=== PATIENT | male | born 1980 | race Caucasian/White ===

== ENCOUNTER 2020-08-28 02:53 | Outpatient (CLI) | payer BC, OTHER, SELFPAY ==
[2020-08-28 16:43] LABS: ALT 44 U/L (16-63); AST 21 U/L (15-37); Alkaline Phosphatase 74 U/L (46-116); Anion Gap 10.6 mmol/L (3-11); BUN 20 mg/dL (7-18); Bilirubin, Total 0.3 mg/dL (0.2-1.0); CO2 27.4 mmol/L (21.0-32.0); CREATININE 1.1 mg/dL (0.70-1.30); Calcium 9.8 mg/dL (8.5-10.1); Calculated LDL 145 mg/dL (<100); Chloride 102 mmol/L (98-107); Cholesterol 228 mg/dL (<200); Glucose 97 mg/dL (74-106); HDL Cholesterol 25 mg/dL (40-60); Sodium 140 mmol/L (136-145); Total Protein 7.3 g/dL (6.4-8.2); Triglyceride 291 mg/dL (<150)
[2020-08-28 21:59] LABS: PSA, Screening 1.1 ng/mL (0.0-2.5)
[2020-09-02 20:31] LABS: Testosterone, Total 299 ng/dL (240-950)
== END 2020-08-28 02:54 | disposition home or self-care (01) ==
LOC: LBO 02:54
PROVIDERS: PCP Student in an Organized Health Care Education/Training Program; Visit Provider Student in an Organized Health Care Education/Training Program
DX: I10 Essential (primary) hypertension (principal); E66.9 Obesity, unspecified; R68.82 Decreased libido; Z12.5 Encounter for screening for malignant neoplasm of prostate; Z13.220 Encounter for screening for lipoid disorders
CPT/HCPCS: 36415; 80053; 80061; 84153; 84403

== ENCOUNTER 2020-09-13 03:22 | Outpatient (CLI) | payer BC, OTHER, SELFPAY ==
[2020-09-14 18:05] LABS: COVID-19 RT-PCR UVMMC Result Negative (Negative)
== END 2020-09-13 03:23 | disposition home or self-care (01) ==
LOC: LBO 03:22
PROVIDERS: PCP Student in an Organized Health Care Education/Training Program; Visit Provider Student in an Organized Health Care Education/Training Program
DX: Z20.822 Contact with and (suspected) exposure to COVID-19 (principal)
CPT/HCPCS: U0003

== ENCOUNTER 2020-09-19 09:21 | Outpatient (CLI) | payer BC, OTHER, SELFPAY ==
[2020-09-20 13:09] LABS: COVID-19 RT-PCR UVMMC Result Negative (Negative)
== END 2020-09-19 09:22 | disposition home or self-care (01) ==
PROVIDERS: PCP Student in an Organized Health Care Education/Training Program; Visit Provider Student in an Organized Health Care Education/Training Program
DX: Z20.822 Contact with and (suspected) exposure to COVID-19 (principal)
CPT/HCPCS: U0003

== ENCOUNTER 2020-10-17 02:48 | Outpatient (CLI) | payer BC, OTHER, SELFPAY ==
[2020-10-18 13:29] LABS: COVID-19 RT-PCR UVMMC Result Negative (Negative)
== END 2020-10-17 02:49 | disposition home or self-care (01) ==
LOC: LBO 02:48
PROVIDERS: PCP Student in an Organized Health Care Education/Training Program; Visit Provider Student in an Organized Health Care Education/Training Program
DX: Z20.822 Contact with and (suspected) exposure to COVID-19 (principal)
CPT/HCPCS: U0003

== ENCOUNTER 2021-04-08 12:40 | Outpatient (CLI) | payer BC, OTHER, SELFPAY ==
--- NOTE | 2021-04-08 13:15 | DI.RAD_ITS ---
Exam(s) XR CHEST 2V PA LATERAL EXAM: XR CHEST 2V PA LATERAL CLINICAL HISTORY: cough, sob, wheeze. covid neg 04/02/21, NOT A PUI. R06.02, R06.2, R05.9 TECHNIQUE: 2D digital imaging was performed of the chest. Two images were obtained. PA and lateral views were obtained. COMPARISON: No exams were available for comparison FINDINGS: MEDIASTINUM: Normal. HEART: Normal. PULMONARY VASCULATURE: Normal. LUNGS: Clear. PLEURAL SPACE: No pleural effusion or pneumothorax. BONE:Within normal limits for the patient's age. OTHER FINDINGS:Normal. IMPRESSION: No acute pulmonary findings. DATA REPOSITORY: RADIATION DOSE DELIVERED:
== END 2021-04-08 13:00 ==
PROVIDERS: PCP Student in an Organized Health Care Education/Training Program; Visit Provider Nurse Practitioner
DX: R05.3 Chronic cough (principal); R06.02 Shortness of breath; R06.2 Wheezing
CPT/HCPCS: 71046

== ENCOUNTER 2021-06-26 03:23 | Outpatient (CLI) | payer BC, OTHER, SELFPAY ==
[2021-06-26 14:09] LABS: HCT 47.3 % (40.0-50.0); HGB 15.4 g/dL (13.5-17.5); MCH 28.4 pg (27.0-33.0); MCHC 32.6 % (32.0-36.0); MCV 87.1 fL (80-95); MPV 9.1 fL (8.0-11.0); Platelet Count 313 10^3/uL (130-400); RBC 5.43 10^6/uL (4.36-5.78); RDW 11.9 % (11.8-14.1); RDW-SD 38.2 fL; WBC 8.79 10^3/uL (4.4-10.8)
[2021-06-26 15:23] LABS: Anion Gap 10.9 mmol/L (3-11); BUN 16 mg/dL (7-18); CO2 24.1 mmol/L (21.0-32.0); CREATININE 1.1 mg/dL (0.70-1.30); Calcium 9.1 mg/dL (8.5-10.1); Calculated LDL 125 mg/dL (<100); Chloride 106 mmol/L (98-107); Cholesterol 201 mg/dL (<200); Glucose 139 mg/dL (74-106); HDL Cholesterol 27 mg/dL (40-60); Potassium 3.8 mmol/L (3.5-5.1); Sodium 141 mmol/L (136-145); TSH (W/Ref FT4) 0.87 uIU/mL (0.36-3.74); Triglyceride 245 mg/dL (<150)
[2021-06-30 16:59] LABS: Testosterone, Total 214 ng/dL (240-950)
== END 2021-06-26 03:24 | disposition home or self-care (01) ==
LOC: LBO 03:23
PROVIDERS: Nurse Practitioner Gerontology; PCP Student in an Organized Health Care Education/Training Program; Visit Provider Student in an Organized Health Care Education/Training Program
DX: I10 Essential (primary) hypertension (principal); R53.83 Other fatigue; R68.82 Decreased libido; Z13.220 Encounter for screening for lipoid disorders
CPT/HCPCS: 36415; 80048; 80061; 84403; 85027; 84443

== ENCOUNTER 2021-07-08 11:17 | Outpatient (CLI) | payer BC, OTHER, SELFPAY ==
--- NOTE | 2021-07-08 11:15 | RT.EKG_ITS ---
APPROVED REPORT Exam: Resting ECG Reason for Exam: chest pain Patient Location: O HR:77 bpm ECG Measurements Heart Rate 77 AXIS [place] 161 P 60 QRSd 88 QRS 14 QT 368 T 37 QTc 417 Conclusion Sinus rhythm...normal P axis, V-rate 60- 99 Normal Electrocardiogram
== END 2021-07-08 11:18 | disposition home or self-care (01) ==
LOC: DI.KIM 11:19
PROVIDERS: PCP Student in an Organized Health Care Education/Training Program; Visit Provider Student in an Organized Health Care Education/Training Program
DX: I10 Essential (primary) hypertension (principal); R07.9 Chest pain, unspecified
CPT/HCPCS: 93010

== ENCOUNTER 2021-07-08 12:42 | Emergency (ER) | payer BC, OTHER, SELFPAY ==
[2021-07-08] VITALS (23 sets, daily range): BP systolic 115–134; BP diastolic 77–94; PULSE 65–90; RESP 7–26; TEMP 35.9; O2SAT 96–99
--- NOTE | 2021-07-08 12:30 | RT.EKG_ITS ---
APPROVED REPORT Exam: Resting ECG Reason for Exam: chest pain Patient Location: E HR:87 bpm ECG Measurements Heart Rate 87 AXIS [place] 163 P 57 QRSd 88 QRS 22 QT 354 T 33 QTc 426 Conclusion Sinus rhythm...normal P axis, V-rate 60- 99 Physician: Rate 87, sinus rhythm, intervals normal, no significant ST elevation or depression. No co ncerning T wave inversions. No STEMI
--- NOTE | 2021-07-08 12:45 | DI.CT_ITS ---
Exam(s) CT CHEST PE CTA EXAM: CT CHEST PE CTA CLINICAL HISTORY: chest pain, sob, pleuritic. TECHNIQUE: Imaging Protocol: Axial CT angiography was performed with multi-slice acquisition and mu lti-planar and/or 3D reconstructions. CONTRAST MATERIAL: Intravenous: Omnipaque 350 Contrast volume:85 mL COMPARISON: CR XR CHEST 2V PA LATERAL from 04/08/2021 CR XR CHEST 2V PA LATERAL from 04/08/2021 FINDINGS: Tracheobronchial tree: Patent where visualized. Pulmonary parenchyma: No consolidation or dominant measurable mass. No architectural distortion. Pulmonary Arteries: No evidence of filling defect to suggest pulmonary emboli. Mediastinum and [place]: No dominant adenopathy or fluid collection. The esophagus is unremarkable. Visualized thyroid gland: Unremarkable. Pleura: No effusion or pneumothorax. Heart: The heart is not dilated. No coronary artery calcifications are seen. No pericardial effusion. Aorta: Thoracic aorta non-dilated. No evidence of dissection. Upper abdomen: Unremarkable. Soft tissues: Unremarkable. Bones: Within normal limits for the patient's age. IMPRESSION: 1. No evidence of pulmonary embolism, thoracic aortic dissection or aneurysm. 2. Results of this exam have been verbally communicated with provider. RADIATION DOSE DELIVERED: 673.61mGy.cm Total DLP DATA REPOSITORY: All CT scans at this facility are submitted to the National Radiology Data Registry (NRDR) Dose Index Registry (DIR) with the [employer] (ACR). RADIATION OPTIMIZATION: All CT scans at this facility use at least one of these dose optimization te chniques: automated exposure control; mA and/or kV adjustment per patient size (includes targeted exa ms where dose is matched to clinical indication); or iterative reconstruction.
--- NOTE | 2021-07-08 12:55 | ED.GENADUL_ITS ---
Discharge Plan Disposition Patient Disposition: HOME Condition: Good Discharge Details Clinical Impression: Chest pain Primary Care Provider: Tita Delaney ED Provider: Mahendra Sprague Home Meds and New Rx's Prescriptions: Continued sumatriptan succinate 25 mg tablet 25 mg PO ONCE PRN (Reason: migraine headache) RF: 0 cumin (black seed oil) capsule See Rx Instructions .ROUTE .COMPLEX Qty: 1 RF: 0 acetaminophen [Pain Reliever (acetaminophen)] 325 mg tablet 325 mg PO ONCE PRNRF: 0 ibuprofen 200 mg tablet 200 mg PO Q6H PRNRF: 0 lisinopril 10 mg tablet 10 mg PO BID Qty: 60 RF: 1 ketoconazole 2 % cream 1 applic topical DAILY PRNRF: 0 cbd oil PO RF: 0 diazepam [Valium] 5 mg tablet 5 mg PO BID MDD 10mg PRN (Reason: anxiety) Qty: 10 RF: 0 omega-3 fatty acids [Fish Oil Concentrate] 1,000 mg capsule 1,000 mg PO DAILY RF: 0 multivitamin Tablet 1 tab PO DAILY RF: 0 up4 Probiotics Adult 15 billion cell capsule PO DAILY RF: 0 Discharge Instructions Instructions: Chest Pain (ED) Additional Instructions: At this time your EKGs and blood work show no signs of heart attack. Your imaging of your chest shows no signs of blood clot or dissection. I suspect a component of your pain may be related to the current stress that you are undergoing in life. It is still very important to continue to monitor for any change in your symptoms, it may be reasonable to discuss with your family doctor getting a stress test in the future. Please take the Valium that your primary care provider has prescribed. Please relax today. If you notice any worsening of your symptoms, or any new symptoms such as vomiting, diarrhea, fever, chills, shortness of breath, chest pain, numbness, weakness, or fainting , please return immediately to the emergency department for reevaluation. Please follow up with your primary care provider as soon as possible for reassessment and reevaluation. As always, it was a pleasure participating in your medical care today. Referrals: Tita Delaney DO [Primary Care Provider] - Medical Decision Making 41-year-old male with a past medical history of hypertension, ADHD, previous gastritis, anxiety and depression, who presents today for chest pain shortness of breath for the last 2 weeks. Patient states that for the last 2 weeks he has had an aching pressure in his left chest. Does not seem to be worsened or relieved by activity or rest. He denies any radiation down his arm or neck. He does feel short of breath, he cannot do his normal workout regiment because he feels so short of breath and fatigue. He denies any recent long trips, surgeries or procedures. She denies any cough or fever. He does admit to an intermittent headache in his left head. He denies any syncope. He denies any personal or family history of cardiac disease. No other complaints at this time. No other modifying factors. He does not smoke, drink, or do drugs. He does admit to a notable recent social stressor that occurred in his life over the last week. He suspects that this may be a component of his symptoms. Physical exam is notably unremarkable. Lungs are clear, heart sounds are normal. Radial pulses are equal. Bedside limited ultrasound shows no evidence of pericardial effusion or clinical tamponade. Cardiac contractility appears to be unremarkable. Differential is broad, but certainly includes a psychosocial component that is bringing this about as the patient does feel that the increased stresses worsen this pain. However patient definitely has risk for cardiac etiology, dissection, PE. We will evaluate for these, monitor closely and reassess. 2:19 PM Laboratory work-up is returned normal, troponin normal, proBNP normal, no signs of heart strain. EKG unremarkable. CTA shows no evidence of acute process. We are pending repeat EKG. Patient states he feels much better at this time. He suspects that the stress is a notable component. 4:24 PM Repeat troponin has returned normal, CT scan unremarkable. Patient stable for discharge. Symptoms clinically inconsistent PE, dissection, stroke, or ACS. I suspect a component of his symptoms may be related to the current social stressors that he is undergoing. Patient stable for discharge. Discussed red flags for which to return. I have extensively reviewed the treatment plan and discharge instructions with the patient. I have addressed all patient concerns at this time. The patient was made aware of what symptoms to monitor for that would warrant a return to the emergency department. Discussed the plan with the patient, they demonstrate verbal understanding and agreement with our assessment and plan at this time. The documentation in this chart was dictated using [employer] dictation software. Please excuse any dictation errors. EKG 12: 48 Rate 87, sinus rhythm, intervals normal, no significant ST elevation or depression. No concerning T wave inversions. No STEMI FINDINGS: Tracheobronchial tree: Patent where visualized. Pulmonary parenchyma: No consolidation or dominant measurable mass. No architectural distortion. Pulmonary Arteries: No evidence of filling defect to suggest pulmonary emboli. Mediastinum and [place]: No dominant adenopathy or fluid collection. The esophagus is unremarkable. Visualized thyroid gland: Unremarkable. Pleura: No effusion or pneumothorax. Heart: The heart is not dilated. No coronary artery calcifications are seen. No pericardial effusion. Aorta: Thoracic aorta non-dilated. No evidence of dissection. Upper abdomen: Unremarkable. Soft tissues: Unremarkable. Bones: Within normal limits for the patient's age. IMPRESSION: 1. No evidence of pulmonary embolism, thoracic aortic dissection or aneurysm. 2. Results of this exam have been verbally communicated with provider. HPI General Date/Time Provider Initiated Documentation: 07/08/21 12:53 . HPI Narrative: CTA 41-year-old male with a past medical history of hypertension, ADHD, previous gastritis, anxiety and depression, who presents today for chest pain shortness of breath for the last 2 weeks. Patient states that for the last 2 weeks he has had an aching pressure in his left chest. Does not seem to be worsened or relieved by activity or rest. He denies any radiation down his arm or neck. He does feel short of breath, he cannot do his normal workout regiment because he feels so short of breath and fatigue. He denies any recent long trips, surgeries or procedures. She denies any cough or fever. He does admit to an intermittent headache in his left head. He denies any syncope. He denies any personal or family history of cardiac disease. No other complaints at this time. No other modifying factors. He does not smoke, drink, or do drugs. He does admit to a notable recent social stressor that occurred in his life over the last week. He suspects that this may be a component of his symptoms. Related Data Home Medications Medication Instructions Recorded Confirmed Lactobacillus cap PO DAILY cap 07/22/20 07/08/21 acidophil,plantar-Bifido no.7 15 billion cell capsule multivitamin 1 tab PO DAILY 07/22/20 07/08/21 omega-3 fatty acids 1,000 mg 1,000 mg PO DAILY 07/22/20 07/08/21 capsule ketoconazole 2 % topical cream 1 applic TOPICAL DAILY PRN 08/15/20 07/08/21 sumatriptan succinate 25 mg tablet 25 mg PO ONCE PRN 10/04/20 07/08/21 cbd oil PO 11/28/20 07/08/21 cumin (black seed oil) See Rx Instructions .ROUTE 01/03/21 07/08/21 .COMPLEX #1 cap acetaminophen 325 mg tablet 325 mg PO ONCE PRN 02/14/21 07/08/21 ibuprofen 200 mg tablet 200 mg PO Q6H PRN 02/14/21 07/08/21 lisinopril 10 mg tablet 10 mg PO BID #60 tab 06/25/21 07/08/21 diazepam 5 mg tablet 5 mg PO BID PRN #10 tab MDD 10mg 07/08/21 07/08/21 Previous Rx's Medication Instructions Recorded cumin (black seed oil) See Rx Instructions .ROUTE 01/03/21 .COMPLEX #1 cap lisinopril 10 mg tablet 10 mg PO BID #60 tab 06/25/21 diazepam 5 mg tablet 5 mg PO BID PRN #10 tab MDD 10mg 07/08/21 Allergies Allergy/AdvReac Type Severity Reaction Status Date / Time penicillin G Allergy Severe Anaphylaxis Verified 07/08/21 12:50 General Stated Complaint: Chest Pain ESTRELLA: 2 Review of Systems All systems reviewed & are unremarkable except as noted in HPI and below PFSH All Active Problems (Updated 07/08/21 @ 16:22 by Mahendra Sprague DO) Chest pain (Acute) Work stress (Acute) Sudden termination @ work, accused of serious crime (non-narcotoc) .. UNABLE TO DISCUSS. 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 SOB (shortness of breath) (Acute) Wheeze (Acute) Cough (Acute) Numbness and tingling of right hand (Acute) Hx Trap MM Tightness, [ ] PT/OT Rosacea (Acute) Hx of sleep apnea (Chronic) Doing well with CPAP Recent change in lifestyle (Acute) Improved diet and exercising daily, 2020 .. discussed rest/recup, ~ 05/2021. Decreased libido (Acute) Discussed testosterone testing; Urology evaluation in light of TBI recommended. Cubital tunnel syndrome on left (Acute) Left lateral epicondylitis (Acute) History of asthma (Chronic) Exercise induced Irritable bowel syndrome (Chronic) Mostly controlled; Hx BM Urgency (malabsorbency vs pancreatitis vs gastroparesis) Hx of gastric ulcer (Chronic) 1990s Hearing loss due to old head trauma (Acute) History of seizures (Chronic) Micro-seizures; Absent seizures (per [employer] [facility])(Hx [facility] Denials) Frequent headaches (Acute) Headaches due to old head trauma (Acute) Dermatitis (Acute) Hx ketoconazole use Left elbow pain (Acute) x 2 mos, probable tendonitis; Hx past trauma Hx of non anemic vitamin B12 deficiency (Acute) History of traumatic head injury (Acute) Hx of transient ischemic attack (TIA) (Acute) ADHD (attention deficit hyperactivity disorder), inattentive type (Acute) Arthritis (Acute) Essential hypertension (Acute) Migraine (Chronic) Restless legs (Acute) Obese (Chronic) Sign weight loss, mm toning, 2020 .. Medical History Anxiety and depression Surgical History H/O shoulder surgery (~2013) LEFT AND RIGHT IN [place] S/P skin biopsy (~2019) [place] S/P tonsillectomy Family History Father Cancer Mother Arthritis Social History Smoking/Tobacco Use Status: Never Smoking risk assessment performed?: Yes Alcohol Intake: never Drug use: Never Substance use type: does not use Details: no IV drug use Adopted: No Caregiver/Support person: No Foster care: No Household members: family Housing: apartment Do you need help understanding health information?: Never Sexually active: Yes Do you think of yourself as: straight/heterosexual Current gender identity: male What is your relationship status?: Panel score (0-1 are the most socially isolated patients): 1 Do you feel safe at home: Yes Do you feel safe in your relationship?: Yes Exam Narrative Exam Narrative: 1.Const: Well-nourished, Well-developed, appearing stated age 2.Eyes: PERRL, no conjunctival injection, and symmetrical lids. 3.ENT: Atraumatic external nose and ears. Moist MM. Neck: Symmetric, trachea midline, No thyromegaly. 4.CVS: +S1/S2, No murmurs or gallops. Peripheral pulses 2+ and equal in all extremities. Brisk capillary refill in all extremities. 5.RESP: Unlabored respiratory effort. Clear to auscultation bilaterally. No wheezes rales or rhonchi 6.GI: Soft, Nontender/Nondistended, No hepatosplenomegaly. No guarding or rebound. 7.MSK: Normocephalic/Atraumatic, Extremities w/o deformity or ttp No cyanosis or clubbing, Normal movement of all extremities, no peripheral edema in lower extremities. Normal radial pulse bilaterally 8.Skin: Warm, Dry. No rashes or lesions. 9.Neuro: block feeder II-XII grossly intact. Sensation grossly intact, no focal neurologic deficits. 10.Psych: (AAO) x3. Appropriate mood and affect Course Vital Signs Vital signs: Vital Signs Temperature 35.9 C L 07/08/21 12:46 Pulse 74 07/08/21 12:46 Respiratory Rate 16 07/08/21 12:46 Blood Pressure 126/94 H 07/08/21 12:46 Temperature 35.9 C L 07/08/21 12:46 Temperature Source Temporal Artery Scan 07/08/21 12:46 Pulse 74 07/08/21 12:46 Respiratory Rate 16 07/08/21 12:46 Respiratory Effort Non-Labored 07/08/21 12:51 Respiratory Depth Normal 07/08/21 12:51 Respiratory Pattern Normal 07/08/21 12:51 Blood Pressure 126/94 H 07/08/21 12:46 Blood Pressure Position Sitting 07/08/21 12:46 Oxygen Delivery Method Room Air 07/08/21 12:46 Oxygen Flow Rate 0 07/08/21 12:46 Pain Level 4 07/08/21 12:46
[2021-07-08 13:11] LABS: Abs Immature Grans 0.01 10^3/uL (0.0-0.06); Absolute Basophil Count 0.06 10^3/uL (0.0-0.2); Absolute Eosinophil Count 0.08 10^3/uL (0.0-0.7); Absolute Lymphocyte Count 2.85 10^3/uL (1.2-3.4); Absolute Monocyte Count 0.76 10^3/uL (0.1-0.8); Absolute Neutrophil Count 4.38 10^3/uL (1.2-6.7); Basophils % 0.7; HCT 50.2 % (40.0-50.0); HGB 16.5 g/dL (13.5-17.5); Immature Grans % 0.1; MCH 28.5 pg (27.0-33.0); MCHC 32.9 % (32.0-36.0); MCV 86.7 fL (80-95); MPV 9.6 fL (8.0-11.0); Monocytes % 9.3; Neutrophils % 53.9; Nucleated RBC 0 %; Platelet Count 327 10^3/uL (130-400); RBC 5.79 10^6/uL (4.36-5.78); RDW-SD 38.1 fL; WBC 8.14 10^3/uL (4.4-10.8)
[2021-07-08 13:28] LABS: ALT 41 U/L (16-63); AST 18 U/L (15-37); Albumin 4.3 g/dL (3.4-5.0); Alkaline Phosphatase 72 U/L (46-116); Anion Gap 9.3 mmol/L (3-11); BUN 15 mg/dL (7-18); Bilirubin, Total 0.6 mg/dL (0.2-1.0); CO2 26.7 mmol/L (21.0-32.0); CREATININE 1.1 mg/dL (0.70-1.30); Calcium 9.2 mg/dL (8.5-10.1); Chloride 104 mmol/L (98-107); Glucose 94 mg/dL (74-106); Potassium 4.1 mmol/L (3.5-5.1); Sodium 140 mmol/L (136-145); Total Protein 7.8 g/dL (6.4-8.2); Troponin I < 50 ng/L (<or=60)
[2021-07-08 13:34] LABS: NT-proBNP 15 pg/mL (<300)
[2021-07-08] MEDS: Omnipaque 350 MG/ML 100 ML BTL IJ (13:35)
[2021-07-08 16:07] LABS: Troponin I < 50 ng/L (<or=60)
== END 2021-07-08 16:29 | disposition home or self-care (01) ==
PROVIDERS: Emergency Provider Student in an Organized Health Care Education/Training Program; PCP Student in an Organized Health Care Education/Training Program
DX: R07.9 Chest pain, unspecified (principal); R06.02 Shortness of breath; I10 Essential (primary) hypertension
CPT/HCPCS: 36415; 71275; 80053; 93005; 99285; 83880; 84484; 85025; 93010; 99284; J3490

== ENCOUNTER 2022-01-14 03:22 | Outpatient (CLI) | payer OTHER, SELFPAY ==
[2022-01-14 09:49] LABS: ALT 66 U/L (16-63); AST 30 U/L (15-37); Albumin 4.1 g/dL (3.4-5.0); Alkaline Phosphatase 73 U/L (46-116); Anion Gap 7.2 mmol/L (3-11); BUN 21 mg/dL (7-18); Bilirubin, Total 0.8 mg/dL (0.2-1.0); CO2 29.8 mmol/L (21.0-32.0); CREATININE 1.1 mg/dL (0.70-1.30); Calcium 8.9 mg/dL (8.5-10.1); Chloride 101 mmol/L (98-107); Glucose 91 mg/dL (74-106); Potassium 4.3 mmol/L (3.5-5.1); Sodium 138 mmol/L (136-145); TSH (W/Ref FT4) 0.64 uIU/mL (0.36-3.74); Total Protein 7.5 g/dL (6.4-8.2)
== END 2022-01-14 03:23 | disposition home or self-care (01) ==
LOC: LBO 03:22
PROVIDERS: PCP Student in an Organized Health Care Education/Training Program; Visit Provider Student in an Organized Health Care Education/Training Program
DX: R53.83 Other fatigue (principal); U09.9 Post COVID-19 condition, unspecified; I99.8 Other disorder of circulatory system
CPT/HCPCS: 36415; 80053; 84443

== ENCOUNTER 2022-01-15 16:23 | Outpatient (REF) | payer OTHER, SELFPAY ==
[2022-01-20 23:15] LABS: Cortisol, U 24 mcg/24 h (3.5-45); Urine Volume 2800 mL
== END 2022-01-15 16:24 | disposition home or self-care (01) ==
LOC: NCHCN 16:23
PROVIDERS: PCP Student in an Organized Health Care Education/Training Program; Visit Provider Student in an Organized Health Care Education/Training Program
DX: E24.8 Other Cushing's syndrome (principal)
CPT/HCPCS: 81050; 82530; 83789

== ENCOUNTER 2022-01-27 15:32 | Outpatient (REF) | payer OTHER, SELFPAY ==
[2022-02-05 00:41] LABS: Midnight Cortisol <50 ng/dL (<100)
== END 2022-01-27 15:33 | disposition home or self-care (01) ==
LOC: LBN 15:32
PROVIDERS: PCP Student in an Organized Health Care Education/Training Program; Visit Provider Student in an Organized Health Care Education/Training Program
DX: E24.9 Cushing's syndrome, unspecified (principal); I99.8 Other disorder of circulatory system
CPT/HCPCS: 82530

== ENCOUNTER 2022-01-28 15:37 | Outpatient (REF) | payer OTHER, SELFPAY ==
[2022-02-05 00:41] LABS: Midnight Cortisol <50 ng/dL (<100)
== END 2022-01-28 15:38 | disposition home or self-care (01) ==
LOC: LBN 15:37
PROVIDERS: PCP Student in an Organized Health Care Education/Training Program; Visit Provider Student in an Organized Health Care Education/Training Program
DX: E24.9 Cushing's syndrome, unspecified (principal); R45.4 Irritability and anger; R53.83 Other fatigue
CPT/HCPCS: 82530